=== PATIENT | male | born 1970 | race Caucasian/White ===

== ENCOUNTER 2023-08-09 17:09 | Inpatient (IN) ==
[2023-08-09] MEDS ORDERED: ALBUT/IPRATROP 3MG/0.5MG NEB 3 ML VIAL INH STA (17:37)
[2023-08-09] MEDS ORDERED: dexAMETHasone**PF** 10 MG/ML VIAL IV ONE (17:37)
[2023-08-09] MEDS ORDERED: SODIUM CHLORIDE 0.9% 500 ML IV STA (17:37)
--- NOTE | 2023-08-09 17:50 | Emergency Department Note ---
Impression & Plan SOB (shortness of breath), CHF (congestive heart failure), Elevated d-dimer, Elevated troponin ED Provider Note NAME: MARRY AZAR AGE: 53 SEX: M : 1970 ARRIVES VIA: Walk-In INFORMANT: [Patient] ED PROVIDER(S): [Escobar Marmolejo MD] CHIEF COMPLAINT: Short of breath, doctor referred HISTORY OF PRESENT ILLNESS: The patient is a 53-year-old male with diabetes. He states that 6 days ago, he began noticing some shortness of breath, chest pain, hoarseness to his voice and cough. He has had some fever and chills. He has had some vomiting and diarrhea. His breathing has worsened. Today, he went to [facility]. He seemed quite short of breath, there was concern for pneumonia, he was sent to the ED for evaluation. The patient dyspnea is worse with exertion and also when lying flat. He could not sleep last night. The patient does smoke cigars, he has no diagnosed lung disease. As per the report from [facility], his COVID test was negative. PMHx/PSHx: See Below SOCIAL HISTORY: See Below. PHYSICAL EXAM: GENERAL: Patient is in mild respiratory distress. HEENT: No acute trauma, normocephalic atraumatic, mucous membranes moist, no nasal congestion. NECK: No stridor, no adenopathy, no meningismus, trachea is midline. LUNGS: Breath sounds are diminished but I hear no wheezing or rhonchi. He does speak in shorter sentences and seems to have to pause to take a bigger breath. Mild respiratory distress. HEART: Mildly tachycardic, no murmurs, regular rhythm. ABDOMEN: Soft, nontender, bowel sounds positive, no peritonitis. EXTREMITIES: No cyanosis, mild bilateral pedal edema, full range of motion of all the joints without pain or difficulty, no signs for acute trauma. NEUROLOGIC: Oriented x 3, no acute motor or sensory deficits, no focal weakness. SKIN: No rash, no jaundice, no diaphoresis. DIFFERENTIAL DIAGNOSIS: Bronchitis or pneumonia, CHF, COVID-19, rhinovirus, cardiac ischemia, anemia, electrolyte imbalance, bacteremia or sepsis, among others. EMERGENCY DEPARTMENT COURSE/PROCEDURES: Prior/Outside records reviewed: [facility] note. ECG per my interpretation: Indication was shortness of breath and chest pain. The ECG shows a sinus tachycardia with a rate of 109. There is an old anterior infarct. There is some nonspecific ST change. There is no concerning ST el evation. LVH is present. No PVCs. The QTc is 479. Compared to an ECG from 20 May 2022, I see no significant change. Continuous Cardiac Monitoring per my interpretation: An order was placed for continuous cardiac monitoring. The monitor shows a rate of 104 with sinus tach ycardia. Critical Care Note: I have personally spent 53 minutes of critical care time in the direct management of this patient. This includes bedside care, interpretation of diagnostic studies, and testing, discussion with consultants, patient, and family members, and other required patient management activities. This 53 minutes is in excess of all separately billable procedures. MEDICAL DECISION MAKING: There is no leukocytosis or concerning anemia. There is a normal platelet count. No coagulopathy. D-dimer is elevated at 1300, the elevated D-dimer makes PE more likely. There is no renal failure or significant electrolyte abnormality. Lactic acid level was not not elevated making severe sepsis less likely. No concerning li ciara enzyme elevation. ECG shows sinus tachycardia, no obvious ischemia. 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 Cardiac troponin testing does show a slight elevation, this elevation could be secondary to mismatch from his dyspnea or potentially cardiac injury. Respiratory bio fire returned completely negative. Chest film per my review does show cardiomegaly with what seems like CHF. There was no pneumothorax or pneumonia. Chest CT does not show PE or pneumonia. CHF was seen. On exam, the patient did appear short of breath. Patient was initially ordered for a small saline bolus however, this was discontinued when the x-ray findings were noted. He was given IV Lasix 40 mg. He was given IV Decadron 6 mg. He was given a DuoNeb. The patient is diuresing. He does seem a bit more comfortable. Patient will require a hospital stay. He appears to be short of breath secondary to CHF. T he cause for the CHF is unclear. Further cardiac work-up is indicated. I spoke with the patient and case management, the on-call hospitalist was consulted. DISPOSITION: Patient's presentation and findings warrant a hospital stay. Past Med/Surg History Medical History Diabetes HLD (hyperlipidemia) HTN (hypertension) Surgical History (Updated 05/20/22 @ 20:02 by Christopher Reed MD) History of back surgery Family History (Updated 05/20/22 @ 20:02 by Christopher Reed MD) Other Stroke Social History Smoking Status: Current every day smoker Tobacco Type: Cigars Preferred Language: Turkmen Feels Safe at Home: Yes Allergies Allergies Allergy/AdvReac Type Severity Reaction Status Date / Time prednisone AdvReac Chest Pain Verified 08/09/23 19:44 Home Meds Home Medications Medication Instructions Recorded Confirmed amlodipine 5 mg tablet 5 mg PO DAILY 05/20/22 08/09/23 atorvastatin 40 mg tablet 40 mg PO DAILY 05/20/22 08/09/23 empagliflozin 25 mg tablet 25 mg PO DAILY 05/20/22 08/09/23 (Jardiance) glimepiride 4 mg tablet 4 mg PO DAILY 05/20/22 08/09/23 Cough Surup 1 ea PO HS 08/09/23 08/09/23 Penicillin Tab 1 tab PO TID 08/09/23 08/09/23 phenylephrine 5 2 cap PO DIRECTED .Cough & 08/09/23 08/09/23 mg-dextromethorphan 10 congestion mg-acetaminophen 325 mg capsule (Vicks DayQuil Cold and Flu Relief) sodium chloride 0.65 % nasal spray 2 spray intranasal Q4H PRN 08/09/23 08/09/23 aerosol (Saline Mist) Congestion Results & Data (ED) Vital Signs Vital Signs - 24 hr 08/09/23 17:13 08/09/23 17:40 08/09/23 17:38 Temperature 36.5 C Temperature Source Oral Pulse Rate 109 H 104 H 107 H Pulse Rate [Apical] Pulse Rhythm Regular Pulse Rhythm [Apical] Pulse Strength [Apical] Respiratory Rate 16 17 Respiratory Effort / Characteristics Non-Labored Spontaneous Respiratory Depth Normal Respiratory Pattern Blood Pressure 139/86 Blood Pressure [Right Arm] Blood Pressure Mean 103 Blood Pressure Mean [Right Arm] Blood Pressure Position [Right Arm] Pulse Oximetry 97 98 Oxygen Delivery Method Room Air Room Air Sepsis Recent Fever Within 48 Hours No Sepsis New/Unexplained Change in Mental Status No Sepsis Action Taken by Nursing No Action Required 08/09/23 19:09 08/09/23 21:39 08/09/23 21:56 Temperature Temperature Source Pulse Rate 103 H Pulse Rate [Apical] 105 H 105 H Pulse Rhythm Pulse Rhythm [Apical] Regular Regular Pulse Strength [Apical] Normal Normal Respiratory Rate 17 20 Respiratory Effort / Characteristics Non-Labored Spontaneous Non-Labored Spontaneous Respiratory Depth Normal Normal Respiratory Pattern Regular Regular Blood Pressure Blood Pressure [Right Arm] 145/93 H Blood Pressure Mean Blood Pressure Mean [Right Arm] 110 Blood Pressure Position [Right Arm] Semi-fowlers Pulse Oximetry 98 96 Oxygen Delivery Method Room Air Room Air Sepsis Recent Fever Within 48 Hours Sepsis New/Unexplained Change in Mental Status Sepsis Action Taken by Residential Medications Current Medication List: was personally reviewed by me Laboratory Data Attestation: I reviewed the patient's lab results. 08/09/23 17:35 08/09/23 17:35 Lab Results 08/09/23 08/09/23 08/09/23 Range/Units 17:35 17:35 17:35 WBC 9.98 (4.8-10.8) K/ul RBC 5.33 (4.70-6.10) M/uL Hgb 16.5 (14.0-18.0) g/dl Hct 47.6 (42.0-52.0) % MCV 89.3 (80.0-100.0) fL MCH 31.0 (25.0-34.0) pg MCHC 34.7 (32.0-36.0) g/dL RDW Std Deviation 41.8 (36.4-46.3) fL RDW Coeff of Janay 12.8 (11.5-14.5) % Plt Count 191 (130-400) K/uL MPV 10.2 (9.4-12.4) fL Immature Gran % (Auto) 0.5 % Neut % (Auto) 59.8 % Lymph % (Auto) 25.7 % Milam % (Auto) 8.8 % Eos % (Auto) 4.1 % Baso % (Auto) 1.1 % Neut # (Auto) 5.97 (1.40-6.50) K/uL Lymph # (Auto) 2.56 (1.20-3.40) K/uL Milam # (Auto) 0.88 H (0.11-0.59) K/uL Eos # (Auto) 0.41 (0.00-0.50) K/uL Baso # (Auto) 0.11 (0.00-0.20) K/uL Immature Gran # (Auto) 0.05 (0.01-0.20) K/uL PT 10.5 (9.0-12.0) Seconds INR 1.0 (0.9-1.1) APTT 26.9 (21.0-31.0) Seconds PTT Ratio 1.0 D-Dimer 1340 H* (0-500) ug/L FEU Sodium 138 (136-145) mmol/L Potassium 4.0 (3.5-5.1) mmol/L Chloride 108 H (98-107) mmol/L Carbon Dioxide 23 (21-32) mmol/L Anion Gap 7 (3-11) BUN 13 (6-23) mg/dl Creatinine 1.08 (0.6-1.4) mg/dl Est Cr Clr Drug Dosing 88.1 ml/min Est GFR ( Amer) 89.1 ml/min Est GFR (Non-Af Amer) 76.9 ml/min BUN/Creatinine Ratio 12.0 (10-20) Glucose 146 H (70-99(Fasting)) mg/dl Lactate (0.4-2.0) mmol/L Calcium 9.5 (8.6-10.3) mg/dl Magnesium 2.1 (1.7-2.4) mg/dl Total Bilirubin 1.2 H (0.2-1.0) mg/dl AST 23 (13-39) U/L ALT 32 (7-52) U/L Alkaline Phosphatase 71 (34-104) U/L Troponin I High Sens 31.9 H (0-20) pg/ml B-Natriuretic Peptide (0-100) pg/ml Total Protein 7.2 (6.0-8.3) gm/dl Albumin 4.3 (3.4-5.0) gm/dl Globulin 2.9 (2.5-4.0) gm/dl Albumin/Globulin Ratio 1.5 (0.9-2) Adenovirus (PCR) (NotDetected) B. pertussis DNA (PCR) (NotDetected) B.parapertussis DNA PCR (NotDetected) C. pneumoniae DNA (PCR) (NotDetected) Coronavirus OC43 (PCR) (NotDetected) Coronavirus HKU1 (PCR) (NotDetected) Coronavirus 229E (PCR) (NotDetected) SARS-CoV-2 (PCR) (NotDetected) Coronavirus NL63 (PCR) (NotDetected) Human Metapneumovir PCR (NotDetected) Influenza Type A (PCR) (NotDetected) Influenza Type B (PCR) (NotDetected) M. pneumoniae (PCR) (NotDetected) Parainfluenza 1 (PCR) (NotDetected) Parainfluenza 2 (PCR) (NotDetected) Parainfluenza 3 (PCR) (NotDetected) Parainfluenza 4 (PCR) (NotDetected) RSV (PCR) (NotDetected) Entero/Rhino (PCR) (NotDetected) 08/09/23 08/09/23 08/09/23 Range/Units 17:35 18:00 18:38 WBC (4.8-10.8) K/ul RBC (4.70-6.10) M/uL Hgb (14.0-18.0) g/dl Hct (42.0-52.0) % MCV (80.0-100.0) fL MCH (25.0-34.0) pg MCHC (32.0-36.0) g/dL RDW Std Deviation (36.4-46.3) fL RDW Coeff of Janay (11.5-14.5) % Plt Count (130-400) K/uL MPV (9.4-12.4) fL Immature Gran % (Auto) % Neut % (Auto) % Lymph % (Auto) % Milam % (Auto) % Eos % (Auto) % Baso % (Auto) % Neut # (Auto) (1.40-6.50) K/uL Lymph # (Auto) (1.20-3.40) K/uL Milam # (Auto) (0.11-0.59) K/uL Eos # (Auto) (0.00-0.50) K/uL Baso # (Auto) (0.00-0.20) K/uL Immature Gran # (Auto) (0.01-0.20) K/uL PT (9.0-12.0) Seconds INR (0.9-1.1) APTT (21.0-31.0) Seconds PTT Ratio D-Dimer (0-500) ug/L FEU Sodium (136-145) mmol/L Potassium (3.5-5.1) mmol/L Chloride (98-107) mmol/L Carbon Dioxide (21-32) mmol/L Anion Gap (3-11) BUN (6-23) mg/dl Creatinine (0.6-1.4) mg/dl Est Cr Clr Drug Dosing ml/min Est GFR ( Amer) ml/min Est GFR (Non-Af Amer) ml/min BUN/Creatinine Ratio (10-20) Glucose (70-99(Fasting)) mg/dl Lactate 1.3 (0.4-2.0) mmol/L Calcium (8.6-10.3) mg/dl Magnesium (1.7-2.4) mg/dl Total Bilirubin (0.2-1.0) mg/dl AST (13-39) U/L ALT (7-52) U/L Alkaline Phosphatase (34-104) U/L Troponin I High Sens (0-20) pg/ml B-Natriuretic Peptide 702 H (0-100) pg/ml Total Protein (6.0-8.3) gm/dl Albumin (3.4-5.0) gm/dl Globulin (2.5-4.0) gm/dl Albumin/Globulin Ratio (0.9-2) Adenovirus (PCR) Not Detected (NotDetected) B. pertussis DNA (PCR) Not Detected (NotDetected) B.parapertussis DNA PCR Not Detected (NotDetected) C. pneumoniae DNA (PCR) Not Detected (NotDetected) Coronavirus OC43 (PCR) Not Detected (NotDetected) Coronavirus HKU1 (PCR) Not Detected (NotDetected) Coronavirus 229E (PCR) Not Detected (NotDetected) SARS-CoV-2 (PCR) Not Detected (NotDetected) Coronavirus NL63 (PCR) Not Detected (NotDetected) Human Metapneumovir PCR Not Detected (NotDetected) Influenza Type A (PCR) Not Detected (NotDetected) Influenza Type B (PCR) Not Detected (NotDetected) M. pneumoniae (PCR) Not Detected (NotDetected) Parainfluenza 1 (PCR) Not Detected (NotDetected) Parainfluenza 2 (PCR) Not Detected (NotDetected) Parainfluenza 3 (PCR) Not Detected (NotDetected) Parainfluenza 4 (PCR) Not Detected (NotDetected) RSV (PCR) Not Detected (NotDetected) Entero/Rhino (PCR) Not Detected (NotDetected) 08/09/23 Range/Units 19:39 WBC (4.8-10.8) K/ul RBC (4.70-6.10) M/uL Hgb (14.0-18.0) g/dl Hct (42.0-52.0) % MCV (80.0-100.0) fL MCH (25.0-34.0) pg MCHC (32.0-36.0) g/dL RDW Std Deviation (36.4-46.3) fL RDW Coeff of Janay (11.5-14.5) % Plt Count (130-400) K/uL MPV (9.4-12.4) fL Immature Gran % (Auto) % Neut % (Auto) % Lymph % (Auto) % Milam % (Auto) % Eos % (Auto) % Baso % (Auto) % Neut # (Auto) (1.40-6.50) K/uL Lymph # (Auto) (1.20-3.40) K/uL Milam # (Auto) (0.11-0.59) K/uL Eos # (Auto) (0.00-0.50) K/uL Baso # (Auto) (0.00-0.20) K/uL Immature Gran # (Auto) (0.01-0.20) K/uL PT (9.0-12.0) Seconds INR (0.9-1.1) APTT (21.0-31.0) Seconds PTT Ratio D-Dimer (0-500) ug/L FEU Sodium (136-145) mmol/L Potassium (3.5-5.1) mmol/L Chloride (98-107) mmol/L Carbon Dioxide (21-32) mmol/L Anion Gap (3-11) BUN (6-23) mg/dl Creatinine (0.6-1.4) mg/dl Est Cr Clr Drug Dosing ml/min Est GFR ( Amer) ml/min Est GFR (Non-Af Amer) ml/min BUN/Creatinine Ratio (10-20) Glucose (70-99(Fasting)) mg/dl Lactate (0.4-2.0) mmol/L Calcium (8.6-10.3) mg/dl Magnesium (1.7-2.4) mg/dl Total Bilirubin (0.2-1.0) mg/dl AST (13-39) U/L ALT (7-52) U/L Alkaline Phosphatase (34-104) U/L Troponin I High Sens 28.9 H (0-20) pg/ml B-Natriuretic Peptide (0-100) pg/ml Total Protein (6.0-8.3) gm/dl Albumin (3.4-5.0) gm/dl Globulin (2.5-4.0) gm/dl Albumin/Globulin Ratio (0.9-2) Adenovirus (PCR) (NotDetected) B. pertussis DNA (PCR) (NotDetected) B.parapertussis DNA PCR (NotDetected) C. pneumoniae DNA (PCR) (NotDetected) Coronavirus OC43 (PCR) (NotDetected) Coronavirus HKU1 (PCR) (NotDetected) Coronavirus 229E (PCR) (NotDetected) SARS-CoV-2 (PCR) (NotDetected) Coronavirus NL63 (PCR) (NotDetected) Human Metapneumovir PCR (NotDetected) Influenza Type A (PCR) (NotDetected) Influenza Type B (PCR) (NotDetected) M. pneumoniae (PCR) (NotDetected) Parainfluenza 1 (PCR) (NotDetected) Parainfluenza 2 (PCR) (NotDetected) Parainfluenza 3 (PCR) (NotDetected) Parainfluenza 4 (PCR) (NotDetected) RSV (PCR) (NotDetected) Entero/Rhino (PCR) (NotDetected) Administered Medications Discontinued Medications Albuterol (Albut/Ipratrop 3mg/0.5mg Neb 3 Ml Vial) 3 ml INH NOW STA Stop: 08/09/23 17:38 Last Admin: 08/09/23 17:49 Dose: 3 ml Documented By: NIECY Dexamethasone Sodium Phosphate (DexamethasonePf 10 Mg/Ml Vial) 6 mg IV NOW ONE Stop: 08/09/23 17:38 Last Admin: 08/09/23 17:49 Dose: 6 mg Documented By: NIECY Furosemide (Furosemide 40 Mg/4 Ml Vial) 40 mg IV ONE ONE Stop: 08/09/23 18:34 Last Admin: 08/09/23 18:38 Dose: 40 mg Documented By: SHELLI Sodium Chloride (Nss) 500 mls @ 999 mls/hr IV .Q31M STA Stop: 08/09/23 18:07 Last Infusion: 08/09/23 18:20 Dose: 0 mls/hr Documented By: Admin: 08/09/23 17:49 Dose: 999 mls/hr Documented By: NIECY Ioversol (Optiray 320 500ml) 115 ml IV ONCE ONE Stop: 08/09/23 19:14 Last Admin: 08/09/23 19:13 Dose: 115 ml Documented By: JESSICA Imaging Data Radiologist's Impression: Chest X-Ray 08/09/23 17:38 XR chest 1V portable CLINICAL HISTORY: Dyspnea TECHNIQUE: Single frontal radiograph of the chest was obtained. Comparison: Comparison is made to chest radiograph 05/20/2022 FINDINGS: Fixation hardware in the cervical and thoracic spine is again seen. Cardiomegaly is noted. There is prominence and cephalization of the vasculature with Janet B lines seen. Trace bilateral pleural effusions. IMPRESSION: 1. Cardiomegaly and moderate pulmonary edema. 2. Trace bilateral pleural effusions. ACT 112: Negative or not required by law. Electronically signed by: Jacob Tay M.D. 08/09/2023 5:53 PM Chest CTA 08/09/23 18:46 CT angio chest PE protocol CLINICAL HISTORY: PE TECHNIQUE: Multidetector row helical CT of the chest was performed with angiographic protocol. Coronal and sagittal reformations were obtained. Coronal and sagittal MIPS were obtained from the axial data set and were submitted for review. Automated dose lowering techniques and/or adjustment according to patient size were utilized for this exam. CT DOSE: 1239.31 mGy.cm Comparison: Comparison is made to chest radiograph 08/09/2023 FINDINGS: Lungs and pleura: Small right and trace left pleural effusion noted with underlying atelectasis. Interstitial reticular thickening is seen. Heart and pericardium: Heart size is normal. No pericardial effusion. Vessels: No evidence of pulmonary embolism. Mediastinum and jeff: Subcentimeter lymph nodes are seen. Chest wall and lower neck: Unremarkable. Abdomen: Unremarkable. Bones: Degenerative changes in the thoracic spine. Posterior cervical and thoracic fixation hardware is seen. Chronic appearing compression deformity at T6. IMPRESSION: 1. No evidence of pulmonary embolus. 2. Bilateral pleural effusions and interstitial pulmonary edema. ACT 112: Negative or not required by law. Electronically signed by: Jacob Tay M.D. 08/09/2023 7:57 PM Discharge Plan Visit Data Chief Complaint: Referred by Doctor Stated Complaint: [facility] REFERRED, SOB, ABNORMAL EKG AND XR ED Provider: Escobar Marmolejo Discharge Problem: SOB (shortness of breath), CHF (congestive heart failure), Elevated d-dimer, Elevated troponin Patient Disposition: Admitted As Inpatient Condition: Serious Forms Stand Alone Forms: [facility] Scholar Prescriptions Prescriptions: No Action Saline Mist 0.65 % Aerosol,[place] 2 spray intranasal Q4H PRN (Reason: Congestion) Vicks DayQuil Cold-Flu Relief 5-10-325 mg Capsule 2 cap PO DIRECTED Cough Surup 1 ea PO HS Penicillin Tab 1 tab PO TID atorvastatin 40 mg tablet 40 mg PO DAILY amlodipine 5 mg tablet 5 mg PO DAILY glimepiride 4 mg tablet 4 mg PO DAILY Jardiance 25 mg tablet 25 mg PO DAILY Referrals Referrals: Brian Griggs MD [Primary Care Provider] -
--- NOTE | 2023-08-09 17:55 | XRay Report ---
XR chest 1V portable CLINICAL HISTORY: Dyspnea TECHNIQUE: Single frontal radiograph of the chest was obtained. Comparison: Comparison is made to chest radiograph 05/20/2022 FINDINGS: Fixation hardware in the cervical and thoracic spine is again seen. Cardiomegaly is noted. There is p rominence and cephalization of the vasculature with Janet B lines seen. Trace bilateral pleural effu sions. IMPRESSION: 1. Cardiomegaly and moderate pulmonary edema. 2. Trace bilateral pleural effusions. ACT 112: Negative or not required by law. Electronically signed by: Jacob Tay M.D. 08/09/2023 5:53 PM
[2023-08-09 18:19] LABS: Basophils # (auto) 0.11 K/uL (0.00-0.20); Basophils % (auto) 1.1 %; Eosinophils # (auto) 0.41 K/uL (0.00-0.50); Eosinophils % (auto) 4.1 %; Hematocrit (blood only) 47.6 % (42.0-52.0); Hemoglobin 16.5 g/dl (14.0-18.0); Immature Granulocytes # (auto) 0.05 K/uL (0.01-0.20); Immature Granulocytes % (auto) 0.5 %; Lymphocytes # (auto) 2.56 K/uL (1.20-3.40); Lymphocytes % (auto) 25.7 %; Mean Corpuscular Hgb Conc 34.7 g/dL (32.0-36.0); Mean Corpuscular Volume 89.3 fL (80.0-100.0); Mean Platelet Volume 10.2 fL (9.4-12.4); Monocytes # (auto) 0.88 K/uL (0.11-0.59); Monocytes % (auto) 8.8 %; Neutrophils # (auto) 5.97 K/uL (1.40-6.50); Neutrophils % (auto) 59.8 %; Platelet Count 191 K/uL (130-400); RDW Coefficient of Variation 12.8 % (11.5-14.5); RDW Standard Deviation 41.8 fL (36.4-46.3); Red Blood Count 5.33 M/uL (4.70-6.10); White Blood Count 9.98 K/ul (4.8-10.8)
[2023-08-09 18:28] LABS: Albumin Globulin Ratio 1.5 (0.9-2); Albumin Level 4.3 gm/dl (3.4-5.0); Bilirubin,Total 1.2 mg/dl (0.2-1.0); Calcium 9.5 mg/dl (8.6-10.3); Creatinine Clr Calc Pharmacy 88.1 ml/min; Est GFR (African American) 89.1 ml/min; Est GFR (Non-African American) 76.9 ml/min; Globulin 2.9 gm/dl (2.5-4.0); Magnesium 2.1 mg/dl (1.7-2.4); Total Protein 7.2 gm/dl (6.0-8.3)
[2023-08-09] MEDS ORDERED: FUROSEMIDE 40 MG/4 ML VIAL IV ONE (18:33)
[2023-08-09 18:35] LABS: Troponin I High Sensitivity 31.9 pg/ml (0-20)
[2023-08-09 18:37] LABS: Partial Thromboplastin Time 26.9 Seconds (21.0-31.0); Prothrombin Time 10.5 Seconds (9.0-12.0)
[2023-08-09 18:44] LABS: D Dimer 1340 ug/L FEU (0-500)
[2023-08-09 19:04] LABS: Adenovirus PCR Not Detected (NotDetected); Bordetella parapertussis PCR Not Detected (NotDetected); Bordetella pertussis PCR Not Detected (NotDetected); Chlamydia pneumoniae PCR Not Detected (NotDetected); Coronavirus 229E PCR Not Detected (NotDetected); Coronavirus CoV-2 (COVID19)PCR Not Detected (NotDetected); Coronavirus HKU1 PCR Not Detected (NotDetected); Coronavirus NL63 PCR Not Detected (NotDetected); Coronavirus OC43PCR Not Detected (NotDetected); Human Metapneumovirus PCR Not Detected (NotDetected); Influenza A PCR Not Detected (NotDetected); Influenza B PCR Not Detected (NotDetected); Mycoplasma pneumoniae PCR Not Detected (NotDetected); Parainfluenza Virus 1 PCR Not Detected (NotDetected); Parainfluenza Virus 2 PCR Not Detected (NotDetected); Parainfluenza Virus 3 PCR Not Detected (NotDetected); Parainfluenza Virus 4 PCR Not Detected (NotDetected); Respiratory Syncytial VirusPCR Not Detected (NotDetected); Rhinovirus/Enterovirus PCR Not Detected (NotDetected)
[2023-08-09] MEDS ORDERED: OPTIRAY 320 500ml IV ONE (19:13)
--- NOTE | 2023-08-09 19:59 | CT Scan Report ---
CT angio chest PE protocol CLINICAL HISTORY: PE TECHNIQUE: Multidetector row helical CT of the chest was performed with angiographic protocol. Torres l and sagittal reformations were obtained. Coronal and sagittal MIPS were obtained from the axial manish a set and were submitted for review. Automated dose lowering techniques and/or adjustment according to patient size were utilized for this exam. CT DOSE: 1239.31 mGy.cm Comparison: Comparison is made to chest radiograph 08/09/2023 FINDINGS: Lungs and pleura: Small right and trace left pleural effusion noted with underlying atelectasis. Inte rstitial reticular thickening is seen. Heart and pericardium: Heart size is normal. No pericardial effusion. Vessels: No evidence of pulmonary embolism. Mediastinum and jeff: Subcentimeter lymph nodes are seen. Chest wall and lower neck: Unremarkable. Abdomen: Unremarkable. Bones: Degenerative changes in the thoracic spine. Posterior cervical and thoracic fixation hardware is seen. Chronic appearing compression deformity at T6. IMPRESSION: 1. No evidence of pulmonary embolus. 2. Bilateral pleural effusions and interstitial pulmonary edema. ACT 112: Negative or not required by law. Electronically signed by: Jacob Tay M.D. 08/09/2023 7:57 PM
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
[2023-08-09] MEDS ORDERED: GLUCAGON FOR INJ 1 MG VIAL SQ PRN (22:20)
[2023-08-09] MEDS ORDERED: GLUCOSE 40% GEL 15 GM TUBE PO PRN (22:20)
[2023-08-09] MEDS ORDERED: POLYETHYLENE (MIRALAX) 17 GM PACK PO PRN (22:20)
[2023-08-09] MEDS ORDERED: NITROGLYCERIN SL 0.4 MG/TAB TAB SL PRN (22:20)
[2023-08-09] MEDS ORDERED: DEXTROSE 50% 50 ML SYRINGE IV PRN (22:20)
[2023-08-09] MEDS ORDERED: CARBOHYDRATES FOR HYPOGLYCEMIA PO PRN (22:20)
[2023-08-09] MEDS ORDERED: ACETAMINOPHEN 325 MG TAB PO PRN (22:20)
[2023-08-09] MEDS ORDERED: GLUCOSE 10 TAB/TUBE PO PRN (22:20)
[2023-08-09] MEDS: INSULIN ASPART PER UNIT CHARGE SC SCH (23:20)
[2023-08-09] MEDS: ENOXAPARIN INJ 40 MG/0.4 ML SYR SQ SCH (23:20)
[2023-08-10] MEDS: INSULIN ASPART PER UNIT CHARGE SC SCH ×5 (06:33→22:09)
[2023-08-10 06:42] LABS: Basophils # (auto) 0.02 K/uL (0.00-0.20); Basophils % (auto) 0.2 %; Hematocrit (blood only) 48.1 % (42.0-52.0); Hemoglobin 16.6 g/dl (14.0-18.0); Immature Granulocytes # (auto) 0.06 K/uL (0.01-0.20); Immature Granulocytes % (auto) 0.5 %; Lymphocytes # (auto) 0.98 K/uL (1.20-3.40); Lymphocytes % (auto) 8.2 %; Mean Corpuscular Hemoglobin 30.7 pg (25.0-34.0); Mean Corpuscular Hgb Conc 34.5 g/dL (32.0-36.0); Mean Corpuscular Volume 89.1 fL (80.0-100.0); Mean Platelet Volume 10.3 fL (9.4-12.4); Monocytes # (auto) 0.57 K/uL (0.11-0.59); Monocytes % (auto) 4.8 %; Neutrophils % (auto) 86.3 %; Platelet Count 179 K/uL (130-400); RDW Coefficient of Variation 12.5 % (11.5-14.5); RDW Standard Deviation 40.6 fL (36.4-46.3); White Blood Count 11.93 K/ul (4.8-10.8)
[2023-08-10 06:56] LABS: BUN Creatinine Ratio 15.9 (10-20); Calcium 9.4 mg/dl (8.6-10.3); Creatinine Clr Calc Pharmacy 87.3 ml/min; Est GFR (African American) 90.1 ml/min; Est GFR (Non-African American) 77.7 ml/min; Magnesium 2.2 mg/dl (1.7-2.4); Potassium 3.9 mmol/L (3.5-5.1)
[2023-08-10] MEDS ORDERED: DEXTROSE 50% 50 ML SYRINGE IV PRN (08:50)
[2023-08-10] MEDS ORDERED: CARBOHYDRATES FOR HYPOGLYCEMIA PO PRN (08:50)
[2023-08-10] MEDS ORDERED: GLUCAGON FOR INJ 1 MG VIAL SQ PRN (08:50)
[2023-08-10] MEDS ORDERED: GLUCOSE 40% GEL 15 GM TUBE PO PRN (08:50)
[2023-08-10] MEDS ORDERED: GLUCOSE 10 TAB/TUBE PO PRN (08:50)
[2023-08-10] MEDS: FUROSEMIDE 40 MG/4 ML VIAL IV SCH ×2 (08:58→17:04)
[2023-08-10] MEDS: ATORVASTATIN 40 MG TAB PO SCH (08:58)
[2023-08-10] MEDS ORDERED: amLODIPine BESYLATE 5 MG TAB PO SCH (09:00)
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
[2023-08-10] MEDS: LANTUS PER UNIT CHARGE SQ SCH (09:47)
[2023-08-10] MEDS: SPIRONOLACTONE 12.5 MG TAB PO SCH (10:59)
[2023-08-10] MEDS: ASPIRIN 81 MG ECTAB PO SCH (10:59)
[2023-08-10] MEDS: METOPROLOL SUCC 25MG EXT REL TAB PO SCH (10:59)
[2023-08-10 11:35] LABS: Thyroid Stimulating Hormone 0.585 uIu/ml (0.300-4.500)
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
[2023-08-10] MEDS: ENOXAPARIN INJ 40 MG/0.4 ML SYR SQ SCH (22:08)
[2023-08-10] MEDS: VALSARTAN/SACUBITRIL 26/24MG TAB PO SCH (22:10)
[2023-08-11 06:37] LABS: Calcium 9.1 mg/dl (8.6-10.3); Potassium 3.5 mmol/L (3.5-5.1)
[2023-08-11 06:43] LABS: BUN Creatinine Ratio 22.8 (10-20); Creatinine Clr Calc Pharmacy 82.2 ml/min; Est GFR (African American) 83.4 ml/min
[2023-08-11 07:18] LABS: Estimated Average Glucose 154 mg/dl
[2023-08-11 07:45] LABS: Hematocrit (blood only) 49.6 % (42.0-52.0); Hemoglobin 16.9 g/dl (14.0-18.0); Mean Corpuscular Hemoglobin 30.5 pg (25.0-34.0); Mean Corpuscular Hgb Conc 34.1 g/dL (32.0-36.0); Mean Corpuscular Volume 89.5 fL (80.0-100.0); Mean Platelet Volume 10.3 fL (9.4-12.4); Platelet Count 182 K/uL (130-400); RDW Coefficient of Variation 12.8 % (11.5-14.5); RDW Standard Deviation 41.9 fL (36.4-46.3); Red Blood Count 5.54 M/uL (4.70-6.10); White Blood Count 13.87 K/ul (4.8-10.8)
[2023-08-11 07:57] LABS: Magnesium 2.1 mg/dl (1.7-2.4)
[2023-08-11] MEDS: INSULIN ASPART PER UNIT CHARGE SC SCH ×4 (09:07→21:34)
[2023-08-11] MEDS: ASPIRIN 81 MG ECTAB PO SCH (09:08)
[2023-08-11] MEDS: VALSARTAN/SACUBITRIL 26/24MG TAB PO SCH ×2 (09:08→21:27)
[2023-08-11] MEDS: ATORVASTATIN 40 MG TAB PO SCH (09:08)
[2023-08-11] MEDS: SPIRONOLACTONE 12.5 MG TAB PO SCH (09:08)
[2023-08-11] MEDS: METOPROLOL SUCC 25MG EXT REL TAB PO SCH (09:08)
[2023-08-11] MEDS: FUROSEMIDE 40 MG/4 ML VIAL IV SCH ×2 (09:09→17:59)
[2023-08-11] MEDS: LANTUS PER UNIT CHARGE SQ SCH (09:15)
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
--- NOTE | 2023-08-11 17:11 | Cardiology Progress Note ---
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 recognized cardiomyopathy LVEF <20% Etiology unknown Dyspnea has significantly improved Started on GDMT therapy Plans for cardiac catheterization on 08-12-2023 - right heart cath + coronary angiography NPO past MN except for ranjit Maria Subjective Events overnight: None reported No chest pain - Dyspnea improving Review of Systems Review of Systems: All systems reviewed & are unremarkable except as noted in HPI & below Physical Exam Physical Exam: obese JVP @ base of neck S1S2 2/6 systolic murmur CTA B 2/2 radial pulse on right No right femoral bruit - pulse 1/2 Warm and perfusing Results & Data Vital Signs (Past 12 Hours) Vital Signs Temp Pulse Pulse Resp BP Pulse Ox O2 Del Method 08/11/23 16:06 102 H 08/11/23 15:35 36.4 C L 100 H 20 111/76 96 Room Air 08/11/23 14:46 36.6 C 102 H 18 105/71 97 Room Air 08/11/23 10:09 96 H Laboratory Results CBC 08/11/23 08/11/23 Range/Units 05:53 07:18 WBC Cancelled 13.87 H RBC Cancelled 5.54 Hgb Cancelled 16.9 Hct Cancelled 49.6 Plt Count Cancelled 182 Comprehensive Metabolic Panel 08/11/23 Range/Units 05:53 Sodium 136 (136-145) mmol/L Potassium 3.5 (3.5-5.1) mmol/L Chloride 107 (98-107) mmol/L Carbon Dioxide 19 L (21-32) mmol/L BUN 26 H (6-23) mg/dl Creatinine 1.14 (0.6-1.4) mg/dl Glucose 203 H (70-99(Fasting)) mg/dl Calcium 9.1 (8.6-10.3) mg/dl Intake and Output 08/11/23 08/11/23 08/11/23 06:59 14:59 22:59 Output Total 300 / 2575 Balance -300 / -2115 Output: Urine 300 / 2575 Other: Weight 92.4 kg Weight Measurement Method Standing Scale Medications Administered Current Inpatient Medications Acetaminophen (Acetaminophen 325 Mg Tab) 650 mg PO Q4H PRN PRN Reason: Pain or Fever Stop: 09/08/23 22:19 Aspirin (Aspirin 81 Mg Ectab) 81 mg PO QAM [facility] Stop: 09/09/23 10:29 Last Admin: 08/11/23 09:08 Dose: 81 mg Atorvastatin Calcium (Atorvastatin 40 Mg Tab) 40 mg PO DAILY [facility] Stop: 09/09/23 08:59 Last Admin: 08/11/23 09:08 Dose: 40 mg Dextrose (Dextrose 50% 50 Ml Syringe) 25 - 50 ml IV UD PRN; Protocol PRN Reason: Hypoglycemia Protocol Stop: 09/08/23 22:19 Dextrose (Dextrose 50% 50 Ml Syringe) 25 - 50 ml IV UD PRN; Protocol PRN Reason: Hypoglycemia Protocol Stop: 09/09/23 08:49 Enoxaparin Sodium (Enoxaparin Inj 40 Mg/0.4 Ml Syr) 40 mg SQ Q24H [facility] Stop: 09/08/23 20:59 Last Admin: 08/10/23 22:08 Dose: 40 mg Furosemide (Furosemide 40 Mg/4 Ml Vial) 40 mg IV [id number] [facility] Stop: 09/09/23 08:59 Last Admin: 08/11/23 09:09 Dose: 40 mg Glucagon (Glucagon For Inj 1 Mg Vial) 1 mg SQ UD PRN; Protocol PRN Reason: Hypoglycemia Protocol Stop: 09/08/23 22:19 Glucagon (Glucagon For Inj 1 Mg Vial) 1 mg SQ UD PRN; Protocol PRN Reason: Hypoglycemia Protocol Stop: 09/09/23 08:49 Glucose (Glucose 10 Tab/Tube) 4 - 8 tab PO UD PRN; Protocol PRN Reason: Hypoglycemia Treatment Stop: 09/08/23 22:19 Glucose (Glucose 40% Gel 15 Gm Tube) 15 - 30 gm PO UD PRN; Protocol PRN Reason: Hypoglycemia Protocol Stop: 09/08/23 22:19 Glucose (Glucose 10 Tab/Tube) 4 - 8 tab PO UD PRN; Protocol PRN Reason: Hypoglycemia Treatment Stop: 09/09/23 08:49 Glucose (Glucose 40% Gel 15 Gm Tube) 15 - 30 gm PO UD PRN; Protocol PRN Reason: Hypoglycemia Protocol Stop: 09/09/23 08:49 Insulin Aspart (Insulin Aspart Per Unit Charge) 0 units SC ACHS [facility] Stop: 09/09/23 08:59 Last Admin: 08/11/23 12:59 Dose: Not Given Insulin Glargine (Lantus Per Unit Charge) 10 units SQ DAILY [facility] Stop: 09/09/23 08:59 Last Admin: 08/11/23 09:15 Dose: 10 units Metoprolol Succinate (Metoprolol Succ 25mg Ext Rel Tab) 25 mg PO QAM [facility] Stop: 09/09/23 10:29 Last Admin: 08/11/23 09:08 Dose: 25 mg Miscellaneous (Carbohydrates For Hypoglycemia ) 15 - 30 gm PO UD PRN PRN Reason: Hypoglycemia Protocol Stop: 09/08/23 22:19 Miscellaneous (Carbohydrates For Hypoglycemia ) 15 - 30 gm PO UD PRN PRN Reason: Hypoglycemia Protocol Stop: 09/09/23 08:49 Nitroglycerin (Nitroglycerin Sl 0.4 Mg/Tab Tab) 0.4 mg SL Q5M PRN PRN Reason: Chest Pain Stop: 09/08/23 22:19 Polyethylene Glycol (Polyethylene (Miralax) 17 Gm Pack) 17 gm PO DAILY PRN PRN Reason: Constipation Stop: 09/08/23 22:19 Sacubitril/Valsartan (Valsartan/Sacubitril 26/24mg Tab) 0.5 tab PO BID [facility] Stop: 09/09/23 20:59 Last Admin: 08/11/23 09:08 Dose: 0.5 tab Spironolactone (Spironolactone 12.5 Mg Tab) 12.5 mg PO DAILY [facility] Stop: 09/09/23 10:29 Last Admin: 08/11/23 09:08 Dose: 12.5 mg
[2023-08-11] MEDS: ENOXAPARIN INJ 40 MG/0.4 ML SYR SQ SCH (21:28)
--- NOTE | 2023-08-12 06:27 | Electrocardiogram Report ---
Test Reason : Blood Pressure : / mmHG Vent. Rate : 109 BPM Atrial Rate : 109 BPM P-R Int : 152 ms QRS Dur : 084 ms QT Int : 356 ms P-R-T Axes : 041 -38 055 degrees QTc Int : 479 ms Poor data quality, interpretation may be adversely affected Sinus tachycardia Possible Left atrial enlargement Left axis deviation Minimal voltage criteria for LVH, may be normal variant ( Shaji product ) Anteroseptal infarct (cited on or before 20-MAY-2022) Abnormal ECG When compared with ECG of 20-MAY-2022 19:42, No significant change Confirmed by Babak Hernández ([id number]) on 08/12/2023 6:27:23 AM Referred By: REFERRED SELF Confirmed By:Babak Hernández
[2023-08-12 06:45] LABS: Hematocrit (blood only) 49.1 % (42.0-52.0); Hemoglobin 17.1 g/dl (14.0-18.0); Mean Corpuscular Hemoglobin 30.8 pg (25.0-34.0); Mean Corpuscular Hgb Conc 34.8 g/dL (32.0-36.0); Mean Corpuscular Volume 88.3 fL (80.0-100.0); Mean Platelet Volume 10.6 fL (9.4-12.4); Platelet Count 184 K/uL (130-400); RDW Coefficient of Variation 12.9 % (11.5-14.5); RDW Standard Deviation 41.6 fL (36.4-46.3); Red Blood Count 5.56 M/uL (4.70-6.10); White Blood Count 10.89 K/ul (4.8-10.8)
[2023-08-12 07:16] LABS: BUN Creatinine Ratio 24.6 (10-20); Calcium 9.1 mg/dl (8.6-10.3); Creatinine Clr Calc Pharmacy 81.4 ml/min; Est GFR (African American) 83.4 ml/min; Magnesium 2.2 mg/dl (1.7-2.4); Potassium 3.6 mmol/L (3.5-5.1)
--- NOTE | 2023-08-12 07:23 | Electrocardiogram Report ---
Test Reason : Blood Pressure : / mmHG Vent. Rate : 091 BPM Atrial Rate : 091 BPM P-R Int : 148 ms QRS Dur : 104 ms QT Int : 404 ms P-R-T Axes : 043 -43 113 degrees QTc Int : 496 ms Normal sinus rhythm Left axis deviation Nonspecific T wave abnormality Prolonged QT Abnormal ECG When compared with ECG of 09-AUG-2023 17:24, (unconfirmed) No significant change was found Confirmed by Babak Hernández ([id number] on 08/12/2023 7:22:50 AM Referred By: REFERRED SELF Confirmed By:Babak Hernández
--- NOTE | 2023-08-12 07:58 | Cardiology Progress Note ---
Date of Service August 12, 2023 Assessment & Plan Admission and Anticipated Discharge Date Admission Date: August 09, 2023 Supervising Physician Co-Signing Physician Notes 53 yo man presenting with dyspnea Dx: acute on chronic combined CHF Newly recognized cardiomyopathy LVEF <20% Etiology unknown Dyspnea has significantly improved GDMT therapy Continue Entresto 24/26 mg (1/2 tab) po BID Increase Aldactone to 25 mg po per day Continue Toprol XL 25 mg po per day Continue Jardiace Patient appears euvolemic Will adjust Lasix/transition only after reviewing Right Heart Cath values Plans for cardiac catheterization on 08-12-2023 - right heart cath + coronary angiography Pt is NPO except for ranjit Maria Subjective Events Overnight: No telemetry events Subjective: * Slept flat * No chest pain * Dyspnea improving Review of Systems Review of Systems: All systems reviewed & are unremarkable except as noted in HPI & below Physical Exam Physical Exam: obese JVP @ base of neck S1S2 2/6 systolic murmur CTA B 2/2 radial pulse on right No right femoral bruit - pulse 1/2 Warm and perfusing Results & Data Vital Signs (Past 12 Hours) Vital Signs Temp Pulse Pulse Pulse Resp BP Pulse Ox 08/12/23 07:28 36.6 C 94 H 18 117/88 95 08/12/23 07:25 93 H 08/12/23 07:25 08/12/23 04:04 36.6 C 67 18 119/76 97 08/11/23 22:00 08/11/23 20:00 08/11/23 23:20 36.4 C L 90 18 112/79 97 Pulse Ox O2 Del Method 08/12/23 07:28 Room Air 08/12/23 07:25 08/12/23 07:25 Room Air 08/12/23 04:04 Room Air 08/11/23 22:00 95 08/11/23 20:00 Room Air 08/11/23 23:20 Room Air Laboratory Results CBC 08/12/23 Range/Units 05:43 WBC 10.89 H (4.8-10.8) K/ul RBC 5.56 (4.70-6.10) M/uL Hgb 17.1 (14.0-18.0) g/dl Hct 49.1 (42.0-52.0) % Plt Count 184 (130-400) K/uL Comprehensive Metabolic Panel 08/12/23 Range/Units 05:43 Sodium 140 (136-145) mmol/L Potassium 3.6 (3.5-5.1) mmol/L Chloride 107 (98-107) mmol/L Carbon Dioxide 25 (21-32) mmol/L BUN 28 H (6-23) mg/dl Creatinine 1.14 (0.6-1.4) mg/dl Glucose 131 H (70-99(Fasting)) mg/dl Calcium 9.1 (8.6-10.3) mg/dl Intake and Output 08/11/23 08/12/23 08/12/23 22:59 06:59 14:59 Intake Total 340 / 540 Output Total 525 / 2225 275 / 2225 Balance -185 / -1685 -275 / -1685 Intake: Oral 340 / 540 Output: Urine 525 / 2225 275 / 2225 Other: Weight 90.4 kg Weight Measurement Method Standing Scale Medications Administered Current Inpatient Medications Acetaminophen (Acetaminophen 325 Mg Tab) 650 mg PO Q4H PRN PRN Reason: Pain or Fever Stop: 09/08/23 22:19 Aspirin (Aspirin 81 Mg Ectab) 81 mg PO QAM [facility] Stop: 09/09/23 10:29 Last Admin: 08/11/23 09:08 Dose: 81 mg Atorvastatin Calcium (Atorvastatin 40 Mg Tab) 40 mg PO DAILY [facility] Stop: 09/09/23 08:59 Last Admin: 08/11/23 09:08 Dose: 40 mg Dextrose (Dextrose 50% 50 Ml Syringe) 25 - 50 ml IV UD PRN; Protocol PRN Reason: Hypoglycemia Protocol Stop: 09/08/23 22:19 Dextrose (Dextrose 50% 50 Ml Syringe) 25 - 50 ml IV UD PRN; Protocol PRN Reason: Hypoglycemia Protocol Stop: 09/09/23 08:49 Empagliflozin (Empagliflozin 25 Mg Tab) 25 mg PO DAILY [facility] Stop: 09/11/23 08:59 Enoxaparin Sodium (Enoxaparin Inj 40 Mg/0.4 Ml Syr) 40 mg SQ Q24H [facility] Stop: 09/08/23 20:59 Last Admin: 08/11/23 21:28 Dose: Not Given Furosemide (Furosemide 40 Mg/4 Ml Vial) 40 mg IV [id number] [facility] Stop: 09/09/23 08:59 Last Admin: 08/11/23 17:59 Dose: 40 mg Glucagon (Glucagon For Inj 1 Mg Vial) 1 mg SQ UD PRN; Protocol PRN Reason: Hypoglycemia Protocol Stop: 09/08/23 22:19 Glucagon (Glucagon For Inj 1 Mg Vial) 1 mg SQ UD PRN; Protocol PRN Reason: Hypoglycemia Protocol Stop: 09/09/23 08:49 Glucose (Glucose 10 Tab/Tube) 4 - 8 tab PO UD PRN; Protocol PRN Reason: Hypoglycemia Treatment Stop: 09/08/23 22:19 Glucose (Glucose 40% Gel 15 Gm Tube) 15 - 30 gm PO UD PRN; Protocol PRN Reason: Hypoglycemia Protocol Stop: 09/08/23 22:19 Glucose (Glucose 10 Tab/Tube) 4 - 8 tab PO UD PRN; Protocol PRN Reason: Hypoglycemia Treatment Stop: 09/09/23 08:49 Glucose (Glucose 40% Gel 15 Gm Tube) 15 - 30 gm PO UD PRN; Protocol PRN Reason: Hypoglycemia Protocol Stop: 09/09/23 08:49 Insulin Aspart (Insulin Aspart Per Unit Charge) 0 units SC ACHS [facility] Stop: 09/09/23 08:59 Last Admin: 08/11/23 21:34 Dose: 1 units Insulin Glargine (Lantus Per Unit Charge) 10 units SQ DAILY [facility] Stop: 09/09/23 08:59 Last Admin: 08/11/23 09:15 Dose: 10 units Metoprolol Succinate (Metoprolol Succ 25mg Ext Rel Tab) 25 mg PO QAM [facility] Stop: 09/09/23 10:29 Last Admin: 08/11/23 09:08 Dose: 25 mg Miscellaneous (Carbohydrates For Hypoglycemia ) 15 - 30 gm PO UD PRN PRN Reason: Hypoglycemia Protocol Stop: 09/08/23 22:19 Miscellaneous (Carbohydrates For Hypoglycemia ) 15 - 30 gm PO UD PRN PRN Reason: Hypoglycemia Protocol Stop: 09/09/23 08:49 Nitroglycerin (Nitroglycerin Sl 0.4 Mg/Tab Tab) 0.4 mg SL Q5M PRN PRN Reason: Chest Pain Stop: 09/08/23 22:19 Polyethylene Glycol (Polyethylene (Miralax) 17 Gm Pack) 17 gm PO DAILY PRN PRN Reason: Constipation Stop: 09/08/23 22:19 Sacubitril/Valsartan (Valsartan/Sacubitril 26/24mg Tab) 0.5 tab PO BID [facility] Stop: 09/09/23 20:59 Last Admin: 08/11/23 21:27 Dose: 0.5 tab Spironolactone (Spironolactone 12.5 Mg Tab) 12.5 mg PO DAILY [facility] Stop: 09/09/23 10:29 Last Admin: 08/11/23 09:08 Dose: 12.5 mg
[2023-08-12] MEDS: INSULIN ASPART PER UNIT CHARGE SC SCH ×4 (08:37→21:14)
[2023-08-12] MEDS: METOPROLOL SUCC 25MG EXT REL TAB PO SCH (09:36)
[2023-08-12] MEDS: ATORVASTATIN 40 MG TAB PO SCH (09:36)
[2023-08-12] MEDS: VALSARTAN/SACUBITRIL 26/24MG TAB PO SCH ×2 (09:36→21:11)
[2023-08-12] MEDS: ASPIRIN 81 MG ECTAB PO SCH (09:37)
[2023-08-12] MEDS: SPIRONOLACTONE 12.5 MG TAB PO SCH (09:37)
[2023-08-12] MEDS: LANTUS PER UNIT CHARGE SQ SCH ×2 (09:40→13:10)
[2023-08-12] MEDS: FUROSEMIDE 40 MG/4 ML VIAL IV SCH ×2 (09:49→17:10)
--- NOTE | 2023-08-12 10:47 | Pre Anesthesia Assessment ---
Date of Service August 12, 2023 Pre Sedation Assessment Vital Signs Temp Pulse Pulse Pulse Resp BP BP 08/12/23 07:28 36.6 C 94 H 18 117/88 08/12/23 07:25 93 H 08/12/23 07:25 08/12/23 04:04 36.6 C 67 18 119/76 08/11/23 22:00 08/11/23 20:00 08/11/23 23:20 36.4 C L 90 18 112/79 08/11/23 19:19 36.3 C L 97 H 18 114/78 08/11/23 16:06 102 H 08/11/23 15:35 36.4 C L 100 H 20 111/76 08/11/23 14:46 36.6 C 102 H 18 105/71 Pulse Ox Pulse Ox O2 Del Method 08/12/23 07:28 95 Room Air 08/12/23 07:25 08/12/23 07:25 Room Air 08/12/23 04:04 97 Room Air 08/11/23 22:00 95 08/11/23 20:00 Room Air 08/11/23 23:20 97 Room Air 08/11/23 19:19 94 Room Air 08/11/23 16:06 08/11/23 15:35 96 Room Air 08/11/23 14:46 97 Room Air Cardiovascular RRR, no murmur, no edema Respiratory normal respiratory effort, lungs clear to auscultation Pre-Sedation Airway Assessment Smoking Status: Light tobacco smoker mallampati 2 asa 4 Notes The planned sedation has been discussed with the patient. Informed Consent was obtained. I have identified the patient, determined the appropriateness of sedation and have assessed the patient immediately prior to the procedure. All medicine(s) and interventions are by my order.
[2023-08-12] MEDS ORDERED: niCARdipine HCL INJ 2.5 MG/ML 10 ML AMP ONE (11:10)
[2023-08-12] MEDS ORDERED: HEPARIN (PORCINE) 1000 UNIT/ML 10 ML (CATH LAB USE ONLY) ONE (11:10)
[2023-08-12] MEDS ORDERED: MIDAZOLAM HCL 1 MG/ML 2ML VIAL ONE ×2 (11:10→11:24)
[2023-08-12] MEDS ORDERED: fentaNYL citrate PF 100 MCG/2 ML VIAL ONE (11:11)
[2023-08-12] MEDS ORDERED: NITROGLYCERIN/D5W 100MCG/ML 20ML SYR ONE (11:12)
[2023-08-12] MEDS ORDERED: diphenhydrAMINE 50 MG/ML VIAL ONE (11:20)
[2023-08-12 11:58] LABS: iSTAT Arterial Blood Gas HCO3 25 meg/L (19-24); iSTAT Arterial Blood Gas pCO2 39 mmHg (35-46); iSTAT Arterial Blood Gas pH 7.42 (7.35-7.45); iSTAT Arterial Blood Gas pO2 70 mmHg (80-95); iSTAT Carbon Dioxide 26 mmol/L (24-31); iSTAT Hematocrit 50 % (42-52); iSTAT Potassium 3.1 mmol/L (3.3-5.0); iSTAT Sodium 142 mmol/L (135-144)
[2023-08-12 12:00] LABS: iSTAT Arterial Blood Gas HCO3 28 meg/L (19-24); iSTAT Arterial Blood Gas pCO2 47 mmHg (35-46); iSTAT Arterial Blood Gas pH 7.38 (7.35-7.45); iSTAT Arterial Blood Gas pO2 35 mmHg (80-95); iSTAT Carbon Dioxide 30 mmol/L (24-31); iSTAT Hematocrit 51 % (42-52); iSTAT Hemoglobin 17.3 g/dl (14.0-18.0); iSTAT Potassium 3.1 mmol/L (3.3-5.0); iSTAT Sodium 142 mmol/L (135-144)
[2023-08-12 12:00] LABS: iSTAT Arterial Blood Gas HCO3 28 meg/L (19-24); iSTAT Arterial Blood Gas pCO2 49 mmHg (35-46); iSTAT Arterial Blood Gas pH 7.37 (7.35-7.45); iSTAT Arterial Blood Gas pO2 36 mmHg (80-95); iSTAT Carbon Dioxide 30 mmol/L (24-31); iSTAT Hematocrit 51 % (42-52); iSTAT Hemoglobin 17.3 g/dl (14.0-18.0); iSTAT Potassium 3.1 mmol/L (3.3-5.0); iSTAT Sodium 142 mmol/L (135-144)
--- NOTE | 2023-08-12 12:15 | Post Anesthesia Assessment ---
Date of Service August 12, 2023 Post Sedation Assessment Vital Signs Temp Pulse Pulse Pulse Resp BP BP 08/12/23 12:07 91 H 18 107/79 08/12/23 10:42 96 H 96 H 19 126/101 H 08/12/23 07:28 36.6 C 94 H 18 117/88 08/12/23 07:25 93 H 08/12/23 07:25 08/12/23 04:04 36.6 C 67 18 119/76 08/11/23 22:00 08/11/23 20:00 08/11/23 23:20 36.4 C L 90 18 112/79 08/11/23 19:19 36.3 C L 97 H 18 114/78 08/11/23 16:06 102 H 08/11/23 15:35 36.4 C L 100 H 20 111/76 08/11/23 14:46 36.6 C 102 H 18 105/71 Pulse Ox Pulse Ox O2 Del Method 08/12/23 12:07 94 Room Air 08/12/23 10:42 96 Room Air 08/12/23 07:28 95 Room Air 08/12/23 07:25 08/12/23 07:25 Room Air 08/12/23 04:04 97 Room Air 08/11/23 22:00 95 08/11/23 20:00 Room Air 08/11/23 23:20 97 Room Air 08/11/23 19:19 94 Room Air 08/11/23 16:06 08/11/23 15:35 96 Room Air 08/11/23 14:46 97 Room Air Recovery Score Activity: Moves 4 extremities Respiration: Deep Breath/Cough Circulation: +/-20% PreAnes Value Consciousness: Fully Awake Oxygen Saturation: > 92% On Room Air Post Anesthesia Score: 10 Discharge Sedation Level of Care: Fast Track Phase II Post Sedation Plan On clinical assessment, the patient appears to have tolerated the sedation witho ut complications. Patient is recovering as anticipated. Patient will continue to be monitored by nursing and may be discharged when sedation discharge criteria are met per below protocol. Upon Completions of procedure up to 15 minutes continue every 5 minute vital signs and the P.A.R. score; then discharge to a Phase I or Fast Track to Phase II per the following guidelines: * Discharge Patient to appropriate Phase II area if PAR is 8 or greater or return to pre- procedure baseline. The post - procedure orders will be as directed. * If PAR score is less than 8 or not return to pre-procedure baseline then patient will follow Phase I monitoring till PAR is reached for Phase II. The Phase I may be done in procedure room or may call to secure a Phase I area. * If naloxone or flumazenil are used for reversal, hold in Phase I for continued monitoring from when last reversal dose was given for a minimum of 60 minutes or longer pending the nurse and/or physician discretion of patient condition before discharge to Phase II. Please call the Sedation Physician to re-evaluate and complete post-note for discharge to Phase II area. Do NOT discharge from procedure sedation or Phase 1 until post- sedation evaluation note is complete by procedure /sedation MD Sedation Discharge Instructions to be given to the patient at discharge to home. [facility] [place] Procedure Codes (Charges) Indication for Procedure Indication for procedure: CARDIOMYOPATHY Sedation/Anesthesia Procedure 1: Sedation/Anesthesia: 91006 Mod Sedation by the same physician;Init15 Min Child Age 5 & Up (START 1120) Total Sedation Time (minutes): 38 Procedure 2: Sedation/Anesthesia: 27547 Mod Sedation by the same physician; Ea [id number] Minutes (ADDITIONAL 23 MIN, END 1158) Total Sedation Time (minutes): 38
[2023-08-12] MEDS: EMPAGLIFLOZIN 25 MG TAB PO SCH (13:09)
--- NOTE | 2023-08-12 15:42 | Cardiac Catheterization ---
[facility] Data: Cluster Bore Operator Cardiac Status Clinical evaluation leading to the procedure CAD Presenation: Non STEMI Anginal Classification: CCS IV Heart Failure: Yes Cardiogenic Shock within 24 Hours: No Cardiac Arrest within 24 Hours: No Imaging Studies Past 6 Months: Yes (Echo) Stress Studies Past 6 Months: No Coronary Anatomy Dominant: Right Left Main (% Stenosis): Normal LAD (% Stenosis): Ostial (80%) and Proximal (99%) D1 (% Stenosis): Normal D2 (% Stenosis): Normal D3 (% Stenosis): Normal Circumflex (% Stenosis): Normal OM1 (% Stenosis): Normal RCA (% Stenosis): Proximal (Up to 30%) R PDA (% Stenosis): Normal R PL1 (% Stenosis): Normal Ramus (% Stenosis): Normal Diagnostic Physicians Name: Gerry Steinberg MD, PhD Closure Device Percutaneous Entry Location: Radial Closure Device: Radial Band Recommendations: Medical Therapy and/or Counseling Cardiac Cath Procedure Full Procedure Date August 12, 2023 Pre-Procedure Diagnosis Pre-Procedure Diagnosis: Cardiomyopathy AUC Score AUC Score: 07 Post-Procedure Diagnosis Post-Procedure Diagnosis: Severe CAD Procedure(s) Performed Procedure(s) Performed: Coronary Angiography and Right Heart Cath Raisin Separator Operator Gerry Steinberg MD, PhD Estimated Blood Loss Estimated Blood Loss: 10 mL Medication(s) Medication(s): Diphenhydramine, Fentanyl, Heparin, Lidocaine 1%, Nicardipine, Nitroglycerin and Versed Summary of Findings Brief description: Patient was brought to the cardiac catheterization suite where he was shaved and prepped in a sterile fashion. Sedated using IV Versed, fentanyl, and Benadryl. Soft tissues of the right wrist were anesthetized using 2 mL of 1% Xylocaine. The right radial artery was accessed using a modified Seldinger technique and a 6 Vietnamese radial artery glide sheath was inserted. We turned our attention to venous access. Patient had a large bore IV in a right antecubital vein. Soft tissues surrounding this were anesthetized using 1 mL of 1% Xylocaine. The IV was exchanged over A 0.014 wire for a 6 Vietnamese venous sheath. We first proceeded with right heart cath. A 6 Vietnamese [place]-Shamir catheter was advanced through the venous sheath and the balloon was inflated. Under fluoroscopic guidance this was then advanced into the right atrium, across the tricuspid valve, and then through the right ventricle across the pulmonary valve where it was terminally parked in the "wedge position". Pulmonary capillary wedge pressure was then obtained. The balloon was deflated and pulmonary arterial pressure and oxygen saturation were obtained. The arterial oxygen saturation was obtained via the radial artery sheath. Cardiac output was determined by both the thermodilution method as well as the method of Piero. Catheter was subsequently pulled back into the right ventricle where right ventricular hemodynamics were measured. Finally, the catheter was pulled into the right atrium where right atrial pressure and oxygen saturation were sampled. Catheter was then removed from the patient. Via the right radial artery sheath the patient was provided anticoagulation with heparin and antispasmodics including nicardipine and nitroglycerin. All catheters were then advanced over a 0.035 J-tip wire. Left coronary angiography in orthogonal views with a 5 Vietnamese [place] 4 diagnostic catheter. Right coronary angiography in orthogonal views with a 5 Vietnamese multipurpose 2 diagnostic catheter. Diagnostic catheters were removed. Radial artery sheath was removed. Hemostasis was obtained using the TR band. The venous sheath was then removed and hemostasis was obtained using manual compression. Patient remained hemodynamically stable and asymptomatic. He was returned to the recovery area. This ended the case. Right heart cath findings: PCWP-29 mmHg PAP-57/36 mmHg, mean 45 mmHg RVP-46/15 mmHg, RVEDP 20 mmHg RAP-14 mmHg Cardiac output (Piero): 4.54 L/min Cardiac index (Piero): 2.21 L/min/m Cardiac output (Thermo): 3.53 L/min Cardiac index (Thermo): 1.72 L/min/m PA O2 sat-65% RA O2 sat-66% Ao O2 sat-94% PVR-4.4 [place] units SVR-19.15 [place] units TVR-22.23 [place] units Coronary angiography findings: XCW-snqsk-xhfspqi trifurcating into LAD, circumflex, and ramus. No disease. LAD-ostial to proximal up to 80% followed by proximal 99% subtotal occlusion. The mid and distal vessel fill late via left to left collateralization. There appears to be up to 3 diagonal branches and a large septal. LCx-small caliber and nondominant. Provides a single OM1 without significant disease. Ramus-this is a very large caliber reaching to the apex and has 3 major branches. It has mild luminal irregularities. Provides significant left to left collaterals to the LAD. CEA-mulvz-djxqgnf and dominant vessel. Proximal up to 30% stenosis. The mid and distal vessel have mild luminal irregularities. It bifurcates distally into the PDA and posterolateral branches. Proximal portion of the PDA has diffuse mild disease. Posterior lateral branch has mild luminal irregularities. The distal PDA appears to have a chronic total occlusion which fills via left to right collateralization. Summary: 1. Elevated wedge pressure, elevated right atrial pressure, elevated RVEDP, consistent with volume overload. The pulmonary arterial pressure and RV pressure suggest mild to moderate pulmonary hypertension. 2. Severe LAD stenosis. Collaterals left to left and left to right. 3. Patient will discuss therapy further with his primary rn integrated with regard to potential surgical revascularization and medical management. Hemodynamics Rest Ao:: 117/89 mmHg Final Ao: 113/92 mmHg LV: Not performed Recommendations Recommendations: Medical Therapy and/or Counseling Radiation Exposure (mGy) 1713 mGy, fluoroscopy time 4.9 minutes Contrast (mls) 140 mL Anesthesia 3 mg IV Versed, 75 mcg IV fentanyl, 25 mg IV Benadryl. Start 1120, end 1158 Procedural Complication(s) None Disposition Recovery Room\\PACU I attest to the content of the Intraoperative Record and any orders documented therein. Any exceptions are noted below. [employer] Card Cath Procedure Codes Cardiac Catheterization Procedure 1: Cardiovascular Cath Procedures: 14943 Coronaries and RHC PG Care Time/CCT Total # of Minutes Spent Total Time Spent with Patient: Total time spent is greater than 50% in coordination of care (as documented) at patient's floor/unit and/or counseling patient:
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
[2023-08-12] MEDS: ENOXAPARIN INJ 40 MG/0.4 ML SYR SQ SCH (21:14)
[2023-08-12] MEDS ORDERED: MELATONIN 3 MG TAB PO PRN (21:42)
[2023-08-13 06:37] LABS: Hematocrit (blood only) 50.4 % (42.0-52.0); Hemoglobin 17.6 g/dl (14.0-18.0); Mean Corpuscular Hemoglobin 30.9 pg (25.0-34.0); Mean Corpuscular Hgb Conc 34.9 g/dL (32.0-36.0); Mean Corpuscular Volume 88.4 fL (80.0-100.0); Mean Platelet Volume 10.4 fL (9.4-12.4); Platelet Count 189 K/uL (130-400); RDW Coefficient of Variation 12.8 % (11.5-14.5); RDW Standard Deviation 41.1 fL (36.4-46.3); White Blood Count 9.92 K/ul (4.8-10.8)
[2023-08-13 06:57] LABS: BUN Creatinine Ratio 25.2 (10-20); Calcium 9.1 mg/dl (8.6-10.3); Creatinine Clr Calc Pharmacy 86.2 ml/min; Est GFR (African American) 90.1 ml/min; Est GFR (Non-African American) 77.7 ml/min; Magnesium 2.3 mg/dl (1.7-2.4); Phosphorus 4.8 mg/dl (2.5-4.9); Potassium 3.3 mmol/L (3.5-5.1)
[2023-08-13] MEDS ORDERED: POTASSIUM CHLORIDE CRTAB 20 MEQ TABCR PO STA (08:12)
[2023-08-13 08:32] LABS: Alpha 1 Globulin 0.3 g/dL (0.2-0.3); Alpha 2 Globulin 0.8 g/dL (0.5-0.9); Beta-1-Globulin 0.4 g/dL (0.4-0.6); Beta-2-Globulin 0.4 g/dL (0.2-0.5); Gamma Globulin 0.8 g/dL (0.8-1.7); Monoclonal Protein Band 1 DNR g/dL (NONE DETECTED); Monoclonal Protein Band 2 DNR g/dL (NONE DETECTED); Monoclonal Protein Band 3 DNR g/dL (NONE DETECTED); Total Protein 6.6 g/dL (6.1-8.1)
[2023-08-13] MEDS: ATORVASTATIN 40 MG TAB PO SCH (09:12)
[2023-08-13] MEDS: ASPIRIN 81 MG ECTAB PO SCH (09:12)
[2023-08-13] MEDS: EMPAGLIFLOZIN 25 MG TAB PO SCH (09:12)
[2023-08-13] MEDS: SPIRONOLACTONE 12.5 MG TAB PO SCH (09:13)
[2023-08-13] MEDS: FUROSEMIDE 40 MG/4 ML VIAL IV SCH (09:13)
[2023-08-13] MEDS: METOPROLOL SUCC 25MG EXT REL TAB PO SCH (09:13)
[2023-08-13] MEDS: VALSARTAN/SACUBITRIL 26/24MG TAB PO SCH (09:13)
[2023-08-13] MEDS: INSULIN ASPART PER UNIT CHARGE SC SCH ×2 (09:30→13:29)
[2023-08-13] MEDS: LANTUS PER UNIT CHARGE SQ SCH (09:31)
--- NOTE | 2023-08-13 09:55 | Cardiology Progress Note ---
Date of Service August 13, 2023 Assessment & Plan Admission and Anticipated Discharge Date Admission Date: August 09, 2023 Supervising Physician Co-Signing Physician Notes 53 yo man presenting with dyspnea Dx: acute on chronic combined CHF Newly recognized cardiomyopathy LVEF <20% Etiology unknown Dyspnea has significantly improved GDMT therapy- started Continue Entresto 24/26 mg (1/2 tab) po BID Increase Aldactone to 25 mg po per day Continue Toprol XL 25 mg po per day Continue Jardiace Reviewed hemodynamics - PCWP 29, RA 14, PA sat 65% Offered patient continued IV diuresis - patient does not want stay for IV diuretics Start Torsemide 50 mg po per day (dispense 100 mg tabs - take 1/ tab) Will need BMP check and ProBNP in the clinic Lifevest being considered + LAD occlusion with collaterals Viability study Patient is very claustrophobic - cardiac MRI may not be a good option May need rest-redistribution MIBI Please arrange for follow up with [facility] Please call back with any additional questions Michael Maria Subjective Events overnight: None Subjective: No chest pain No immediate complications from cath Review of Systems Review of Systems: All systems reviewed & are unremarkable except as noted in HPI & below Physical Exam Physical Exam: obese JVP @ base of neck S1S2 2/6 systolic murmur CTA B 2/2 radial pulse on right (dressed) Warm and perfusing Results & Data Vital Signs (Past 12 Hours) Vital Signs Temp Pulse Pulse Resp BP Pulse Ox O2 Del Method 08/13/23 07:58 88 18 110/81 95 Room Air 08/12/23 21:58 82 08/13/23 03:21 36.4 C L 77 18 110/74 97 Room Air 08/12/23 22:49 36.9 C 70 18 110/76 95 Room Air Laboratory Results CBC 08/13/23 Range/Units 05:47 WBC 9.92 (4.8-10.8) K/ul RBC 5.70 (4.70-6.10) M/uL Hgb 17.6 (14.0-18.0) g/dl Hct 50.4 (42.0-52.0) % Plt Count 189 (130-400) K/uL Comprehensive Metabolic Panel 08/13/23 Range/Units 05:47 Sodium 140 (136-145) mmol/L Potassium 3.3 L (3.5-5.1) mmol/L Chloride 107 (98-107) mmol/L Carbon Dioxide 25 (21-32) mmol/L BUN 27 H (6-23) mg/dl Creatinine 1.07 (0.6-1.4) mg/dl Glucose 99 (70-99(Fasting)) mg/dl Calcium 9.1 (8.6-10.3) mg/dl Intake and Output 08/12/23 08/13/23 08/13/23 22:59 06:59 14:59 Intake Total 950 / 1240 50 / 1240 Output Total 2325 / 3975 350 / 3975 200 / 200 Balance -1375 / -2735 -300 / -2735 -200 / -200 Intake: Oral 950 / 1240 50 / 1240 Output: Urine 2325 / 3975 350 / 3975 200 / 200 Other: Weight 89.3 kg Weight Measurement Method Standing Scale Diagnostic Findings Cardiac Catheterization: 08/12/2023 Right heart cath findings: PCWP-29 mmHg PAP-57/36 mmHg, mean 45 mmHg RVP-46/15 mmHg, RVEDP 20 mmHg RAP-14 mmHg Cardiac output (Piero): 4.54 L/min Cardiac index (Piero): 2.21 L/min/m Cardiac output (Thermo): 3.53 L/min Cardiac index (Thermo): 1.72 L/min/m PA O2 sat-65% RA O2 sat-66% Ao O2 sat-94% PVR-4.4 [place] units SVR-19.15 [place] units TVR-22.23 [place] units Coronary angiography findings: [id number] trifurcating into LAD, circumflex, and ramus. No disease. LAD-ostial to proximal up to 80% followed by proximal 99% subtotal occlusion. The mid and distal vessel fill late via left to left collateralization. There appears to be up to 3 diagonal branches and a large septal. LCx-small caliber and nondominant. Provides a single OM1 without significant disease. Ramus-this is a very large caliber reaching to the apex and has 3 major branches. It has mild luminal irregularities. Provides significant left to left collaterals to the LAD. TVM-rermn-bpczurj and dominant vessel. Proximal up to 30% stenosis. The mid and distal vessel have mild luminal irregularities. It bifurcates distally into the PDA and posterolateral branches. Proximal portion of the PDA has diffuse mild disease. Posterior lateral branch has mild luminal irregularities. The distal PDA appears to have a chronic total occlusion which fills via left to right collateralization. Summary: 1. Elevated wedge pressure, elevated right atrial pressure, elevated RVEDP, consistent with volume overload. The pulmonary arterial pressure and RV pressure suggest mild to moderate pulmonary hypertension. 2. Severe LAD stenosis. Collaterals left to left and left to right. 3. Patient will discuss therapy further with his primary machinist mechanic with regard to potential surgical revascularization and medical management. Medications Administered Current Inpatient Medications Acetaminophen (Acetaminophen 325 Mg Tab) 650 mg PO Q4H PRN PRN Reason: Pain or Fever Stop: 09/08/23 22:19 Aspirin (Aspirin 81 Mg Ectab) 81 mg PO QAM K[facility]IGH Stop: 09/09/23 10:29 Last Admin: 08/13/23 09:12 Dose: 81 mg Atorvastatin Calcium (Atorvastatin 40 Mg Tab) 40 mg PO DAILY K[place]IGH Stop: 09/09/23 08:59 Last Admin: 08/13/23 09:12 Dose: 40 mg Dextrose (Dextrose 50% 50 Ml Syringe) 25 - 50 ml IV UD PRN; Protocol PRN Reason: Hypoglycemia Protocol Stop: 09/08/23 22:19 Dextrose (Dextrose 50% 50 Ml Syringe) 25 - 50 ml IV UD PRN; Protocol PRN Reason: Hypoglycemia Protocol Stop: 09/09/23 08:49 Empagliflozin (Empagliflozin 25 Mg Tab) 25 mg PO DAILY K[place]IGH Stop: 09/11/23 08:59 Last Admin: 08/13/23 09:12 Dose: 25 mg Enoxaparin Sodium (Enoxaparin Inj 40 Mg/0.4 Ml Syr) 40 mg SQ Q24H [facility] Stop: 09/08/23 20:59 Last Admin: 08/12/23 21:14 Dose: 40 mg Furosemide (Furosemide 40 Mg/4 Ml Vial) 40 mg IV [id number] [facility]IGH Stop: 09/09/23 08:59 Last Admin: 08/13/23 09:13 Dose: 40 mg Glucagon (Glucagon For Inj 1 Mg Vial) 1 mg SQ UD PRN; Protocol PRN Reason: Hypoglycemia Protocol Stop: 09/08/23 22:19 Glucagon (Glucagon For Inj 1 Mg Vial) 1 mg SQ UD PRN; Protocol PRN Reason: Hypoglycemia Protocol Stop: 09/09/23 08:49 Glucose (Glucose 10 Tab/Tube) 4 - 8 tab PO UD PRN; Protocol PRN Reason: Hypoglycemia Treatment Stop: 09/08/23 22:19 Glucose (Glucose 40% Gel 15 Gm Tube) 15 - 30 gm PO UD PRN; Protocol PRN Reason: Hypoglycemia Protocol Stop: 09/08/23 22:19 Glucose (Glucose 10 Tab/Tube) 4 - 8 tab PO UD PRN; Protocol PRN Reason: Hypoglycemia Treatment Stop: 09/09/23 08:49 Glucose (Glucose 40% Gel 15 Gm Tube) 15 - 30 gm PO UD PRN; Protocol PRN Reason: Hypoglycemia Protocol Stop: 09/09/23 08:49 Insulin Aspart (Insulin Aspart Per Unit Charge) 0 units SC ACHS [facility] Stop: 09/09/23 08:59 Last Admin: 08/13/23 09:30 Dose: 3 units Insulin Glargine (Lantus Per Unit Charge) 5 units SQ DAILY [facility] Stop: 09/11/23 10:14 Last Admin: 08/13/23 09:31 Dose: 5 units Melatonin (Melatonin 3 Mg Tab) 3 mg PO HS PRN PRN Reason: Sleep Stop: 09/11/23 21:41 Last Admin: 08/12/23 22:07 Dose: 3 mg Metoprolol Succinate (Metoprolol Succ 25mg Ext Rel Tab) 25 mg PO QAM [facility] Stop: 09/09/23 10:29 Last Admin: 08/13/23 09:13 Dose: 25 mg Miscellaneous (Carbohydrates For Hypoglycemia ) 15 - 30 gm PO UD PRN PRN Reason: Hypoglycemia Protocol Stop: 09/08/23 22:19 Miscellaneous (Carbohydrates For Hypoglycemia ) 15 - 30 gm PO UD PRN PRN Reason: Hypoglycemia Protocol Stop: 09/09/23 08:49 Nitroglycerin (Nitroglycerin Sl 0.4 Mg/Tab Tab) 0.4 mg SL Q5M PRN PRN Reason: Chest Pain Stop: 09/08/23 22:19 Polyethylene Glycol (Polyethylene (Miralax) 17 Gm Pack) 17 gm PO DAILY PRN PRN Reason: Constipation Stop: 09/08/23 22:19 Sacubitril/Valsartan (Valsartan/Sacubitril 26/24mg Tab) 0.5 tab PO BID [facility] Stop: 11/14/23 20:59 Last Admin: 08/13/23 09:13 Dose: 0.5 tab Spironolactone (Spironolactone 12.5 Mg Tab) 12.5 mg PO DAILY [facility] Stop: 09/09/23 10:29 Last Admin: 08/13/23 09:13 Dose: 12.5 mg
[2023-08-13 13:12] LABS: Alpha 1 Globulin DNR g/dL; Alpha 2 Globulin DNR g/dL; Anti Nuclear Antibody Screen POSITIVE (NEGATIVE); Beta-1-Globulin DNR g/dL; Beta-2-Globulin DNR g/dL; Electrophoresis Interpret DNR; Gamma Globulin DNR g/dL; Monoclonal Protein Band 1 DNR g/dL (NONE DETECTED); Monoclonal Protein Band 2 DNR g/dL (NONE DETECTED); Monoclonal Protein Band 3 DNR g/dL (NONE DETECTED)
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
[2023-08-13] MEDS ORDERED: TORSEMIDE 100 MG TAB PO SCH ×2 (17:00)
[2023-08-13] MEDS ORDERED: FUROSEMIDE 40 MG/4 ML VIAL IV ONE (17:02)
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
[2023-08-14] MEDS ORDERED: SPIRONOLACTONE 25 MG TAB PO SCH (09:00)
[2023-08-14 12:36] LABS: ANA Pattern 2 Cytoplasmic; ANA Titer 1:40 titer; ANA Titer 2 1:40 titer
== END 2023-08-13 19:17 | disposition home or self-care (01) | DRG 286 ==
LOC: ED 17:09 → SUATTDRO 21:38 → 4W 21:38